=== PATIENT | female | born 1990 | race Two or more races ===

== ENCOUNTER → 2022-05-19 | Day surgery (SDC) | payer MEDICAID ==
[2022-05-16 12:01] LABS: Basophils # (auto) 0 10 ^3/uL (0-0.2); Basophils % (auto) 0.2 % (0.0-2.0); Eosinophils # (auto) 0.1 10 ^3/uL (0-0.8); Eosinophils % (auto) 1.4 % (0.0-7.0); Hematocrit 41.6 % (36.0-46.0); Hemoglobin 14.2 g/dL (12.2-16.2); Lymphocytes # (auto) 1.8 10 ^3/uL (0.4-5.4); Lymphocytes % (auto) 24.4 % (10.0-50.0); Monocytes # (auto) 0.5 10 ^3/uL (0-1.3); Neutrophils # (auto) 4.8 10 ^3/uL (1.6-8.6); Red Blood Cells 4.43 10^6/uL (4.0-5.20); Red Cell Distribution Width 13.5 % (11.8-14.3); White Blood Cell 7.3 10^3/uL (4.4-10.8)
[2022-05-16 12:16] LABS: INR 0.98 (0.9-1.15); Partial Thromboplastin Time 27.5 sec (24.6-33.4)
[2022-05-16 12:17] LABS: Potassium 3.8 mmol/L (3.5-5.1)
[2022-05-16 12:24] LABS: Albumin 4.3 g/dL (3.4-5.0); BUN/Creatinine Ratio 14.5; Bilirubin, Total 0.6 mg/dL (0.2-1.0); Calcium 8.9 mg/dL (8.5-10.1); Total Protein 7.7 g/dL (6.4-8.2)
[2022-05-16 12:28] LABS: Urine Bacteria FEW /hpf (None Seen); Urine Blood 1+ /uL (Negative); Urine Specific Gravity 1.012 (1.001-1.035); Urine WBC 11 /hpf (0 - 5)
[~2022-05-19] VITALS: Ht 172.7 cm; Wt 77.1 kg
[~2022-05-19] MED LIST: BUPIVACAINE 0.25% INJ 50ML VIAL ONE; DexAMETHasone SOD PHOS 10MG/1ML VIAL INJ ONE; GLYCOPYRROLATE 0.2 MG/ML 1ML VIAL ONE; KETOROLAC TROMETH 30 MG/ML 1ML VIAL ONE; LIDOCAINE W/ EPINEPHRINE 2% INJ 20ML VIAL ONE; ONDANSETRON HCL 4 MG/2 ML VIAL ONE; ceFAZolin 1GM/50ML 100 ML IV ONE
[2022-05-19 08:28] VITALS: BP 124/99
== END | disposition home or self-care (01) ==
LOC: SUR 06:13
PROVIDERS: ATTEND Orthopaedic Surgery Adult Reconstructive Orthopaedic Surgery
DX: G56.02 Carpal tunnel syndrome, left upper limb (principal); G56.22 Lesion of ulnar nerve, left upper limb; Z20.822 Contact with and (suspected) exposure to COVID-19
CPT/HCPCS: 36415; 64718; 64721; 80053; 81001; 81025; 85025; 85610; 85730; J0690; J1100; J1885; J2405; J3490; U0003